=== PATIENT | male | born 1940 | race Caucasian/White ===

== ENCOUNTER 2018-11-27 09:09 | Emergency (ER) | payer OTHER ==
[~2018-11-27] VITALS: Ht 167.6 cm; Wt 82.1 kg
[2018-11-27] MEDS ORDERED: ENALAPRIL MALEA10 MG (09:40)
[2018-11-27] MEDS ORDERED: ATIVAN1 M1 (09:41)
[2018-11-27] MEDS ORDERED: KETO10TA2 PO (13:23)
== END 2018-11-27 13:49 | disposition home or self-care (01) ==
LOC: ER 09:09
DX: B34.9 Viral infection, unspecified (principal); N39.0 Urinary tract infection, site not specified

== ENCOUNTER 2021-02-10 09:23 | Emergency (ER) | payer OTHER ==
[~2021-02-10] VITALS: Ht 167.6 cm; Wt 88.5 kg
[~2021-02-10 09:23] MED LIST: ATIVAN1 M1; ENALAPRIL MALEA10 MG; KETO10TA2 PO
[2021-02-10] MEDS ORDERED: TUSSIN DM SYRU118 ML PO (13:37)
[2021-02-10] MEDS ORDERED: AMOX-CLAV 875-1 EACH PO (13:37)
== END 2021-02-10 13:40 | disposition home or self-care (01) ==
LOC: ER 09:23
DX: B34.9 Viral infection, unspecified (principal); R05 Cough; R53.81 Other malaise; R09.81 Nasal congestion; Z11.52 Encounter for screening for COVID-19

== ENCOUNTER 2021-06-04 11:48 | Emergency (ER) | payer OTHER ==
[~2021-06-04] VITALS: Ht 167.6 cm; Wt 88.5 kg
[~2021-06-04 11:48] MED LIST changes: +AMOX-CLAV 875-1 EACH PO; +TUSSIN DM SYRU118 ML PO
== END 2021-06-04 17:15 | disposition home or self-care (01) ==
LOC: ER 11:48
DX: U07.1 COVID-19 (principal); B34.9 Viral infection, unspecified